=== PATIENT | female | born 1970 | race Hispanic/Latino ===

== ENCOUNTER 2018-04-18 12:16 | Emergency (ER) | payer MEDICAID ==
[2018-04-18 12:16] VITALS: BMI 36.0
[2018-04-18] MEDS: Albuterol-Ipratrop 3 mg / 0.5 (3 ml) UD IH SCH ×3 (12:45→13:15)
--- NOTE | 2018-04-18 12:49 | C.PDOC ---
History Of Present Illness 47 y/o female, w/PMhx of asthma and COPD, presents to the ER for evaluation of shortness of breath which has been present for the past 1 year. Patient states that she used her inhaler today, but she still feels short of breath. Patient reports that she has reduced her smoking. She notes that she has history of anxiety due to her asthma. Denies having CP, fever, and chills. Time Seen by Provider: 04/18/18 12:32 Chief Complaint (Nursing): Shortness Of Breath History Per: Patient History/Exam Limitations: no limitations Onset/Duration Of Symptoms: Days Current Symptoms Are (Timing): Still Present Severity: Moderate Past Medical History Reviewed: Historical Data, Nursing Documentation, Vital Signs Vital Signs: Last Vital Signs Temp 97.7 F 04/18/18 12:21 Pulse 86 04/18/18 12:21 Resp 20 04/18/18 12:21 BP 150/89 04/18/18 12:21 Pulse Ox 94 L 04/18/18 12:21 - Medical History PMH: Asthma, Back Problems, COPD, HTN, Sleep Apnea (on CPAP) Denies: Chronic Kidney Disease Surgical History: Back Surgery, Cholecystectomy - [facility] ENDOSC POLYPECTOMY OF LG INTEST (11/18/14) ESOPHAGOGASTRODUODENOSCOPY [EGD] W/CLOSED BIOPSY (11/25/14) Family History: States: No Known Family Hx - Social History Hx Tobacco Use: Yes Hx Alcohol Use: No Hx Substance Use: No - Immunization History Hx Tetanus Toxoid Vaccination: No Hx Influenza Vaccination: No Hx Pneumococcal Vaccination: No Review Of Systems Except As Marked, All Systems Reviewed And Found Negative. Constitutional: Negative for: Fever, Chills Cardiovascular: Negative for: Chest Pain Respiratory: Positive for: Shortness of Breath Physical Exam - Physical Exam Appears: Non-toxic, No Acute Distress Skin: Normal Color, Warm, Dry Head: Atraumatic, Normacephalic Eye(s): bilateral: Normal Inspection Nose: Normal Oral Mucosa: Moist Neck: Supple Chest: Symmetrical Cardiovascular: Rhythm Regular Respiratory: Normal Breath Sounds, No Rales, No Rhonchi, No Wheezing Gastrointestinal/Abdominal: Soft Neurological/Psych: Oriented x3, Normal Speech ED Course And Treatment ECG: Interpreted By Me ECG Rhythm: Sinus Rhythm ECG Interpretation: No Acute Changes Rate From EC O2 Sat by Pulse Oximetry: 94 (RA) Pulse Ox Interpretation: Normal - Other Rad No standard instances X-Ray: Viewed By Me, Read By Radiologist Interpretation: FINDINGS: Examination limited by habitus. LUNGS: Mild medial right lower lobe atelectasis. Please note that chest x-ray has limited sensitivity for the detection of pulmonary masses. PLEURA: No significant pleural effusion identified. No definite pneumothorax . CARDIOVASCULAR: Heart size appears within normal limits. No atherosclerotic calcification present. OSSEOUS STRUCTURES: Degenerative changes of the spine. VISUALIZED UPPER ABDOMEN: Unremarkable. OTHER FINDINGS: None. IMPRESSION: Mild medial right lower lobe atelectasis. Progress Note: On re-evaluation lungs clear in no distress. Feeling better. Patient reports history of anxiety and thinks she was having a anxiety attack fron the asthma Reassessment Condition: Improved Medical Decision Making Medical Decision Making: Plan: --CXR --Albuterol --Prednisone Disposition - Disposition [facility] Disposition: HOME/ ROUTINE Disposition Time: 14:00 Condition: GOOD Additional Instructions: Follow up with your PMD or clinic for further evaluation Prescriptions: Albuterol HFA [Ventolin HFA 90 mcg/actuation (8 g)] 2 puff IH [id number] #1 units Methylprednisolone [Medrol Dose Pack (21 tabs)] 4 mg PO DAILY #21 mg Instructions: Asthma in Adults Forms: [facility] ([place]) - POA Present On Arrival: None - Clinical Impression Clinical Impression: Asthma - PA / [employer] POLYPHASE / Resident Statement MD/DO has reviewed & agrees with the documentation as recorded. - Scribe Statement The provider has reviewed the documentation as recorded by the Laisha Coughlin Provider Attestation All medical record entries made by the Laisha were at my direction and personally dictated by me. I have reviewed the chart and agree that the record accurately reflects my personal performance of the history, physical exam, medical decision making, and the department course for this patient. I have also personally directed, reviewed, and agree with the discharge instructions and disposition.
--- NOTE | 2018-04-18 12:58 | RAD ---
HISTORY: SOB COMPARISON: Chest x-ray performed 04/04/16 TECHNIQUE: Chest PA and lateral FINDINGS: Examination limited by habitus. LUNGS: Mild medial right lower lobe atelectasis. Please note that chest x-ray has limited sensitivity for the detection of pulmonary masses. PLEURA: No significant pleural effusion identified. No definite pneumothorax . CARDIOVASCULAR: Heart size appears within normal limits. No atherosclerotic calcification present. OSSEOUS STRUCTURES: Degenerative changes of the spine. VISUALIZED UPPER ABDOMEN: Unremarkable. OTHER FINDINGS: None. IMPRESSION: Mild medial right lower lobe atelectasis.
[2018-04-18] MEDS ORDERED: Albuterol-Ipratrop 3 mg / 0.5 (3 ml) UD ONE (13:24)
[2018-04-18 14:13] VITALS: BP 132/74; PULSE 85; RESP 20; TEMP 98.2
[2018-04-18 16:37] VITALS: O2SAT 94
--- NOTE | 2018-04-19 10:54 | CARD ---
APPROVED REPORT Date of service: 04/18/2018 EKG Measurement Heart [id number] <Conclusion> Sinus rhythm with occasional premature ventricular complexes Anteroseptal infarct, age undetermined Abnormal ECG
== END 2018-04-18 14:13 | disposition home or self-care (01) ==
LOC: C.ER 12:16
DX: J45.909 Unspecified asthma, uncomplicated (principal); I10 Essential (primary) hypertension; F17.210 Nicotine dependence, cigarettes, uncomplicated